=== PATIENT | female | born 1935 | race Caucasian/White ===

== ENCOUNTER 2016-12-16 20:15 | Emergency (ER) | payer OTHER ==
[~2016-12-16] VITALS: Ht 172.7 cm; Wt 69.9 kg
[2016-12-16 20:15] VITALS: BP 181/84; PULSE 72; RESP 18; TEMP 98.1; O2SAT 98
[~2016-12-16 20:15] MED LIST: ALEN70TA27 PO; LEVO112T5 PO; METO-306 PO
--- NOTE | 2016-12-16 20:15 | NUR ---
Patient to ER bed 5 to gown for evaluation. Side rails up. Report given to Margaret LO.
--- NOTE | 2016-12-16 20:24 | NUR ---
Patient brought to ER by family after slip & fall at home. Patient C/O severe 10/10 left lateral rib pain radiating to mid back, worse with inspiration and movement. AAOx4, unlabored breathing, clear lungs, no bruising, no signs of acute distress.
--- NOTE | 2016-12-16 20:26 | NUR ---
ER MD Harryaw at bedside for evaluation
[2016-12-16] MEDS ORDERED: KETOROLAC TROMETHAMINE 60 MG/2 ML VIAL IM ONE (20:45)
--- NOTE | 2016-12-16 21:49 | NUR ---
Patient calm on gurney, no signs of distress.
[2016-12-16 22:21] VITALS: BP 142/79; PULSE 73; RESP 17; TEMP 98.2; O2SAT 99
--- NOTE | 2016-12-16 22:21 | NUR ---
Patient given written and verbal discharge instructions and verbalizes understanding. ER MD Floyd discussed with patient the results and treatment provided. Patient in stable condition. ID arm band removed. Rx of norco given. Patient educated on pain management and to follow up with PMD. Pain Scale 0/10. Opportunity for questions provided and answered.
== END 2016-12-16 22:21 | disposition home or self-care (01) ==
LOC: SED 20:15
DX: S20.20XA Contusion of thorax, unspecified, initial encounter (principal); I10 Essential (primary) hypertension; W01.0XXA Fall on same level from slipping, tripping and stumbling without subsequent striking against object, initial encounter; Y93.89 Activity, other specified; Y92.89 Other specified places as the place of occurrence of the external cause; Y99.8 Other external cause status
CPT/HCPCS: 71250; 96372; 99284; J1885

== ENCOUNTER 2018-03-29 10:24 | Emergency (ER) | payer OTHER ==
[~2018-03-29] VITALS: Ht 172.7 cm; Wt 71.2 kg
[2018-03-29 10:24] VITALS: BP_SYST 142
[2018-03-29] MEDS ORDERED: NACL 0.9% 1,000 ML IV ONE (10:35)
[2018-03-29 11:03] LABS: BASOPHILS % (AUTO) 0.6 % (0.0-2.0); EOSINOPHILS % (AUTO) 0.2 % (0.0-4.0); HEMATOCRIT 37.5 % (36-48); HEMOGLOBIN 12.6 g/dL (12.0-16.0); LYMPHOCYTES # (AUTO) 2.5 K/uL (1.0-5.5); LYMPHOCYTES % (AUTO) 39.5 % (20.5-51.5); MEAN CORPUSCULAR HEMOGLOBIN 31 pg (27-31); MEAN CORPUSCULAR HGB CONC 34 % (32-36); MEAN CORPUSCULAR VOLUME 93 fL (79.0-98.0); MONOCYTES # (AUTO) 0.4 K/uL (0.0-1.0); MONOCYTES % (AUTO) 6.5 % (1.7-9.3); NEUTROPHILS # (AUTO) 3.4 K/uL (1.8-7.7); NEUTROPHILS % (AUTO) 53.2 % (40.0-70.0); PLATELET COUNT (AUTO) 287 K/uL (130-430); RED BLOOD CELL COUNT(AUTO) 4.03 MIL/uL (4.2-6.2); RED CELL DISTRIBUTION WIDTH 12.9 % (9.0-15.0); WHITE BLOOD COUNT (AUTO) 6.4 K/uL (4.8-10.8)
[2018-03-29 11:15] LABS: ANION GAP 13 (5-15); CALCIUM 8.6 mg/dL (8.4-11.0); CHLORIDE 105 mmol/L (98-107); CREATININE 0.96 mg/dL (0.55-1.30); GLUCOSE 135 mg/dL (70-99); POTASSIUM 3.5 mmol/L (3.5-5.1); SODIUM SERUM 142 mmol/L (136-145); UREA NITROGEN, BLOOD 14 mg/dL (8-21)
[2018-03-29 11:20] LABS: ALANINE AMINOTRANSFERASE 27 U/L (12-78); ALBUMIN 3.5 g/dL (3.4-4.8); ASPARTATE AMINOTRANSFERASE 21 U/L (10-37); TOTAL BILIRUBIN 0.2 mg/dL (0.0-1.0)
[2018-03-29] MEDS ORDERED: MAGNESIUM SULFATE 0 ML IV ONE (18:59)
[2018-03-29 20:49] VITALS: BP_SYST 138
== END 2018-03-29 12:50 | disposition home or self-care (01) ==
LOC: SED 10:24
DX: S82.002A Unspecified fracture of left patella, initial encounter for closed fracture (principal); S80.02XA Contusion of left knee, initial encounter; S00.531A Contusion of lip, initial encounter; S20.211A Contusion of right front wall of thorax, initial encounter; M54.5 Low back pain; G89.29 Other chronic pain; I10 Essential (primary) hypertension; Z79.899 Other long term (current) drug therapy; W01.0XXA Fall on same level from slipping, tripping and stumbling without subsequent striking against object, initial encounter; Y93.89 Activity, other specified; Y92.009 Unspecified place in unspecified non-institutional (private) residence as the place of occurrence of the external cause; Y99.8 Other external cause status
CPT/HCPCS: 36415; 70450; 70486; 71045; 72100; 73502; 73564; 80053; 85025; 99285; J7030; J3475

== ENCOUNTER 2019-12-07 17:52 | Emergency (ER) | payer OTHER ==
[~2019-12-07] VITALS: Ht 172.7 cm; Wt 68.0 kg
[~2019-12-07 17:52] MED LIST changes: -METO-306 PO; +METO-542 PO
[2019-12-07 18:13] VITALS: BP_SYST 132
[2019-12-07] MEDS ORDERED: TRANEXAMIC ACID 1,000 MG/10 ML VIAL IV ONE ×2 (18:45→23:00)
[2019-12-07] MEDS ORDERED: PHENYLEPHRINE HCL 1% NASAL 15 ML NASPR NS ONE (19:00)
[2019-12-07] MEDS ORDERED: LIDOCAINE 1% 10 MG/ML, 20 ML MDV INJ ONE (19:15)
[2019-12-07] MEDS ORDERED: fentaNYL CITRATE/PF 100 MCG/2 ML AMP IM ONE (19:30)
[2019-12-07] MEDS ORDERED: fentaNYL CITRATE/PF 100 MCG/2 ML AMP IVP ONE (20:45)
[2019-12-07] MEDS ORDERED: CLINDAMYCIN 600 MG in D5W 50 ML IV ONE (20:45)
[2019-12-07] MEDS ORDERED: CLINDAMYCIN 600 mg/50mL D5W 50 ML IV ONE (20:58)
[2019-12-07] MEDS ORDERED: MORPHINE 2 MG/ML INJ. SYRINGE IVP ONE (21:00)
[2019-12-07] MEDS ORDERED: LIDOCAINE/EPI 1% 1:100000 20 ML VIAL INJ ONE (23:00)
[2019-12-07] MEDS ORDERED: PHENYLEPHRINE HCL 0.25% NASAL 15 ML NASPR NS PRN (23:00)
[2019-12-07] MEDS ORDERED: OXYMETAZOLINE HCL 0.05% NASAL SPRAY NS PRN (23:00)
[2019-12-08] MEDS ORDERED: MORPHINE 2 MG/ML INJ. SYRINGE IVP ONE (00:15)
[2019-12-08 02:20] VITALS: BP_SYST 138
== END 2019-12-08 02:20 | disposition short-term general hospital (02) ==
LOC: SED 17:52
DX: S02.31XA Fracture of orbital floor, right side, initial encounter for closed fracture (principal); S02.32XA Fracture of orbital floor, left side, initial encounter for closed fracture; S02.609A Fracture of mandible, unspecified, initial encounter for closed fracture; S02.2XXA Fracture of nasal bones, initial encounter for closed fracture; I10 Essential (primary) hypertension; Z79.899 Other long term (current) drug therapy; W18.39XA Other fall on same level, initial encounter; Y93.89 Activity, other specified; Y92.89 Other specified places as the place of occurrence of the external cause; Y99.8 Other external cause status
CPT/HCPCS: 12011; 70450; 70486; 71045; 71110; 72125; 96365; 96372; 96375; 96376; 99285; J2001; J2270 ×2; J3010; J3490 ×2

== ENCOUNTER 2020-04-04 13:47 | Inpatient (IN) | payer OTHER ==
[~2020-04-04] VITALS: Ht 170.2 cm; Wt 59.4 kg
[2020-04-04 14:00] VITALS: BP_SYST 139
[2020-04-04] MEDS ORDERED: MORPHINE 2 MG/ML INJ. SYRINGE IVP ONE ×2 (15:15→16:30)
[2020-04-04] MEDS ORDERED: NS 500 ML IV ONE (15:30)
[2020-04-04 15:43] LABS: HEMOGLOBIN 11.7 g/dL (12.0-16.0); RED BLOOD CELL COUNT(AUTO) 3.91 MIL/uL (4.2-6.2)
[2020-04-04 15:48] LABS: BASOPHILS % (AUTO) 0.6 % (0.0-2.0); EOSINOPHILS # (AUTO) 0.1 K/uL (0.0-0.4); EOSINOPHILS % (AUTO) 0.9 % (0.0-4.0); HEMATOCRIT 35.6 % (36-48); LYMPHOCYTES # (AUTO) 2.6 K/uL (1.0-5.5); LYMPHOCYTES % (AUTO) 39.9 % (20.5-51.5); MEAN CORPUSCULAR HEMOGLOBIN 30 pg (27-31); MEAN CORPUSCULAR HGB CONC 33 % (32-36); MEAN CORPUSCULAR VOLUME 91 fL (79.0-98.0); MONOCYTES # (AUTO) 0.4 K/uL (0.0-1.0); MONOCYTES % (AUTO) 5.8 % (1.7-9.3); NEUTROPHILS # (AUTO) 3.5 K/uL (1.8-7.7); NEUTROPHILS % (AUTO) 52.8 % (40.0-70.0); PLATELET COUNT (AUTO) 256 K/uL (130-430); RED CELL DISTRIBUTION WIDTH 13.9 % (9.0-15.0); WHITE BLOOD COUNT (AUTO) 6.6 K/uL (4.8-10.8)
[2020-04-04 15:52] LABS: ANION GAP 7 (5-15); CALCIUM 8.6 mg/dL (8.4-11.0); CHLORIDE 106 mmol/L (98-107); CREATININE 1.01 mg/dL (0.55-1.30); GLUCOSE 102 mg/dL (70-99); POTASSIUM 4.1 mmol/L (3.5-5.1); SODIUM SERUM 139 mmol/L (136-145); UREA NITROGEN, BLOOD 16 mg/dL (8-21)
[2020-04-04 16:04] LABS: ALANINE AMINOTRANSFERASE 27 U/L (12-78); ALBUMIN 3.4 g/dL (3.4-4.8); ASPARTATE AMINOTRANSFERASE 20 U/L (10-37); TOTAL BILIRUBIN 0.2 mg/dL (0.0-1.0)
[2020-04-04] MEDS ORDERED: HYDR-4272 PO (16:56)
[2020-04-04] MEDS ORDERED: BACL10TA PO (16:56)
[2020-04-04] MEDS ORDERED: GABA-529 PO (16:56)
[2020-04-04] MEDS ORDERED: MORPHINE 2 MG/ML INJ. SYRINGE IVP PRN (17:45)
[2020-04-04] MEDS ORDERED: METOPROLOL SUCCINATE 50 MG TAB.SR.24H (TOPROL XL) PO ONE (17:45)
[2020-04-04] MEDS ORDERED: METOCLOPRAMIDE HCL 10 MG/2 ML VIAL IVP PRN (17:45)
[2020-04-04] MEDS ORDERED: ACETAMINOPHEN 325 MG TABLET PO PRN (17:45)
[2020-04-04] MEDS ORDERED: ONDANSETRON HCL 4 MG/2 ML VIAL IVP PRN (17:45)
[2020-04-04 17:52] VITALS: BP_SYST 128
[2020-04-04 18:49] VITALS: BP_SYST 132
[2020-04-04 20:00] VITALS: BP_SYST 161
[2020-04-04] MEDS ORDERED: IOHEXOL 350 mgI/mL, 150 ML INFUS..BTL IV ONE (20:19)
[2020-04-04 21:00] VITALS: BP_SYST 152
[2020-04-04] MEDS: NACL 0.9% 1,000 ML IV SCH (22:13)
[2020-04-04] MEDS: LEVOTHYROXINE SODIUM 0.112 MG TABLET PO SCH (22:14)
[2020-04-04] MEDS: MORPHINE 4 MG/ML INJ. SYRINGE IVP PRN (22:58)
[2020-04-05 00:34] VITALS: BP_SYST 152
[2020-04-05] MEDS: MORPHINE 4 MG/ML INJ. SYRINGE IVP PRN ×3 (05:50→21:13)
[2020-04-05 08:00] VITALS: BP_SYST 153
[2020-04-05] MEDS: LEVOTHYROXINE SODIUM 0.112 MG TABLET PO SCH ×2 (09:26→21:14)
[2020-04-05] MEDS: METOPROLOL SUCCINATE 50 MG TAB.SR.24H (TOPROL XL) PO SCH (09:26)
[2020-04-05] MEDS: NACL 0.9% 1,000 ML IV SCH (10:25)
[2020-04-05 12:37] VITALS: BP_SYST 146
[2020-04-05 16:00] VITALS: BP_SYST 147; BP_SYST 151
[2020-04-05 20:00] VITALS: BP_SYST 157
[2020-04-06 01:08] VITALS: BP_SYST 150
[2020-04-06] MEDS: NACL 0.9% 1,000 ML IV SCH ×2 (03:05→22:00)
[2020-04-06] MEDS: MORPHINE 4 MG/ML INJ. SYRINGE IVP PRN (05:03)
[2020-04-06 08:00] VITALS: BP_SYST 149
[2020-04-06] MEDS: LEVOTHYROXINE SODIUM 0.112 MG TABLET PO SCH ×2 (09:37→22:00)
[2020-04-06] MEDS: METOPROLOL SUCCINATE 50 MG TAB.SR.24H (TOPROL XL) PO SCH (09:37)
[2020-04-06 12:29] VITALS: BP_SYST 139
[2020-04-06 15:11] LABS: BILIRUBIN,URINE NEGATIVE (NEGATIVE); BLOOD, URINE 1+ (NEGATIVE); CLARITY/URINE CLEAR (CLEAR); COLOR,URINE YELLOW (YELLOW); GLUCOSE,URINE NEGATIVE (NEGATIVE); KETONES,URINE 2+ (NEGATIVE); LEUKOCYTE ESTERASE ,URINE NEGATIVE (NEGATIVE); NITRITE, URINE NEGATIVE (NEGATIVE); PROTEIN URINE TRACE (NEGATIVE); UROBILINOGEN,URINE 0.2 (0.2-1.0)
[2020-04-06] MEDS ORDERED: ROCURONIUM BROMIDE 10 MG/ML (ZEMURON) ONE ×2 (15:49→17:17)
[2020-04-06] MEDS ORDERED: POLYMYXIN 500,000/BACIT.10,000 UNITS in NS IRR 1 L IR ONE (15:52)
[2020-04-06 16:12] LABS: BACTERIA,URINE FEW /HPF (None Seen); COARSE GRANULAR CASTS,URINE 0-10 /LPF (None Seen); MUCUS,URINE 2+ /LPF (None Seen); RBC,URINE 0-3 /HPF (0-3)
[2020-04-06] MEDS ORDERED: LR 1,000 ML IV SCH (16:16)
[2020-04-06] MEDS ORDERED: HYDROmorphone 2 MG/ML VIAL IVP PRN (16:30)
[2020-04-06] MEDS ORDERED: hydrALAZINE HCL 20 MG/ML VIAL IVP PRN (16:30)
[2020-04-06] MEDS ORDERED: NALOXONE HCL 0.4 MG/ML AMP (NARCAN) IVP PRN (16:30)
[2020-04-06] MEDS ORDERED: ONDANSETRON HCL 4 MG/2 ML VIAL IVP PRN (16:30)
[2020-04-06] MEDS ORDERED: ePHEDrine sulfate 50 MG/ML VIAL IVP PRN (16:30)
[2020-04-06] MEDS ORDERED: PROPOFOL 200MG/ 20ML VIAL (DIPRIVAN) IV ONE (17:17)
[2020-04-06] MEDS ORDERED: fentaNYL CITRATE/PF 100 MCG/2 ML AMP ONE (17:17)
[2020-04-06] MEDS ORDERED: MIDAZOLAM HCL 5 MG/ML VIAL (VERSED) IV ONE (17:17)
[2020-04-06] MEDS ORDERED: ePHEDrine sulfate 50 MG/ML VIAL ONE (17:17)
[2020-04-06] MEDS ORDERED: CEFAZOLIN 2 GM IVPB PREMIX 50 ML IV ONE (17:17)
[2020-04-06] MEDS ORDERED: BUPIVACAINE /PF 0.5% 30 ML VIAL ONE (17:17)
[2020-04-06] MEDS ORDERED: LR 1,000 ML IV.SOLN IV ONE (17:17)
[2020-04-06] MEDS ORDERED: SEVOFLURANE 15 MIN GAS INH ONE (17:17)
[2020-04-06] MEDS ORDERED: ONDANSETRON HCL 4 MG/2 ML VIAL ONE (17:17)
[2020-04-06] MEDS: HYDROmorphone 1 MG INJ. 1 MG/ML AMPUL IVP PRN ×2 (17:40→17:50)
[2020-04-06] MEDS ORDERED: HYDROmorphone 1 MG INJ. 1 MG/ML AMPUL ONE (17:57)
[2020-04-06 18:13] VITALS: BP_SYST 168
[2020-04-06] MEDS ORDERED: LR 1,000 ML IV ONE (19:30)
[2020-04-06] MEDS ORDERED: HYDROcodone/ACETAMIN 5-325 MG TAB (NORCO/ VICODIN) PO PRN (19:30)
[2020-04-06 20:00] VITALS: BP_SYST 131
[2020-04-06] MEDS: DOCUSATE SODIUM 100 MG CAPSULE PO SCH (22:00)
[2020-04-06] MEDS: CEFAZOLIN 1 GM IVPB PREMIX 50 ML IV SCH (22:01)
[2020-04-06] MEDS: HYDROcodone/ACETAMIN 5-325 MG TAB (NORCO/ VICODIN) PO PRN (22:06)
[2020-04-07 01:39] VITALS: BP_SYST 100
[2020-04-07] MEDS: CEFAZOLIN 1 GM IVPB PREMIX 50 ML IV SCH (06:39)
[2020-04-07 07:51] LABS: BASOPHILS # (AUTO) 0.1 K/uL (0.0-0.2); BASOPHILS % (AUTO) 0.4 % (0.0-2.0); EOSINOPHILS % (AUTO) 0.1 % (0.0-4.0); HEMATOCRIT 25.9 % (36-48); HEMOGLOBIN 8.5 g/dL (12.0-16.0); LYMPHOCYTES # (AUTO) 1.3 K/uL (1.0-5.5); LYMPHOCYTES % (AUTO) 8.7 % (20.5-51.5); MEAN CORPUSCULAR HEMOGLOBIN 30 pg (27-31); MEAN CORPUSCULAR HGB CONC 33 % (32-36); MEAN CORPUSCULAR VOLUME 91 fL (79.0-98.0); MONOCYTES # (AUTO) 0.8 K/uL (0.0-1.0); MONOCYTES % (AUTO) 5.5 % (1.7-9.3); NEUTROPHILS # (AUTO) 12.5 K/uL (1.8-7.7); NEUTROPHILS % (AUTO) 85.3 % (40.0-70.0); PLATELET COUNT (AUTO) 167 K/uL (130-430); RED BLOOD CELL COUNT(AUTO) 2.84 MIL/uL (4.2-6.2); RED CELL DISTRIBUTION WIDTH 14.6 % (9.0-15.0); WHITE BLOOD COUNT (AUTO) 14.7 K/uL (4.8-10.8)
[2020-04-07 08:00] VITALS: BP_SYST 132
[2020-04-07] MEDS: LEVOTHYROXINE SODIUM 0.112 MG TABLET PO SCH ×2 (09:00→21:02)
[2020-04-07] MEDS: DOCUSATE SODIUM 100 MG CAPSULE PO SCH ×2 (09:00→21:02)
[2020-04-07] MEDS: METOPROLOL SUCCINATE 50 MG TAB.SR.24H (TOPROL XL) PO SCH (09:00)
[2020-04-07 12:16] VITALS: BP_SYST 136
[2020-04-07] MEDS: NACL 0.9% 1,000 ML IV SCH ×2 (12:25→22:28)
[2020-04-07] MEDS: ENOXAPARIN SODIUM 40 MG/0.4 ML SYRINGE SUBCUT SCH (14:11)
[2020-04-07 16:10] VITALS: BP_SYST 109
[2020-04-07] MEDS: HYDROcodone/ACETAMIN 5-325 MG TAB (NORCO/ VICODIN) PO PRN (17:14)
[2020-04-07 20:00] VITALS: BP_SYST 102
[2020-04-08 01:48] VITALS: BP_SYST 105
[2020-04-08 06:22] LABS: ALANINE AMINOTRANSFERASE 21 U/L (12-78); ALBUMIN 2.1 g/dL (3.4-4.8); ANION GAP 7 (5-15); ASPARTATE AMINOTRANSFERASE 26 U/L (10-37); CALCIUM 7.3 mg/dL (8.4-11.0); CHLORIDE 106 mmol/L (98-107); CREATININE 0.77 mg/dL (0.55-1.30); GLUCOSE 113 mg/dL (70-99); POTASSIUM 3.6 mmol/L (3.5-5.1); SODIUM SERUM 139 mmol/L (136-145); TOTAL BILIRUBIN 0.4 mg/dL (0.0-1.0); UREA NITROGEN, BLOOD 13 mg/dL (8-21)
[2020-04-08 07:45] VITALS: BP_SYST 113
[2020-04-08] MEDS: LEVOTHYROXINE SODIUM 0.112 MG TABLET PO SCH ×2 (08:21→20:49)
[2020-04-08] MEDS: METOPROLOL SUCCINATE 50 MG TAB.SR.24H (TOPROL XL) PO SCH (08:23)
[2020-04-08] MEDS: DOCUSATE SODIUM 100 MG CAPSULE PO SCH ×3 (08:23→20:49)
[2020-04-08 10:04] LABS: HEMATOCRIT 22.3 % (36-48); HEMOGLOBIN 7.5 g/dL (12.0-16.0); MEAN CORPUSCULAR HEMOGLOBIN 30 pg (27-31); MEAN CORPUSCULAR HGB CONC 34 % (32-36); MEAN CORPUSCULAR VOLUME 91 fL (79.0-98.0); PLATELET COUNT (AUTO) 166 K/uL (130-430); RED BLOOD CELL COUNT(AUTO) 2.46 MIL/uL (4.2-6.2); RED CELL DISTRIBUTION WIDTH 14.5 % (9.0-15.0); WHITE BLOOD COUNT (AUTO) 10.3 K/uL (4.8-10.8)
[2020-04-08 10:05] LABS: BASOPHILS % (AUTO) 0.3 % (0.0-2.0); EOSINOPHILS # (AUTO) 0.1 K/uL (0.0-0.4); EOSINOPHILS % (AUTO) 0.9 % (0.0-4.0); LYMPHOCYTES # (AUTO) 1.4 K/uL (1.0-5.5); LYMPHOCYTES % (AUTO) 13.2 % (20.5-51.5); MONOCYTES # (AUTO) 0.8 K/uL (0.0-1.0); MONOCYTES % (AUTO) 7.4 % (1.7-9.3); NEUTROPHILS # (AUTO) 8.1 K/uL (1.8-7.7); NEUTROPHILS % (AUTO) 78.2 % (40.0-70.0)
[2020-04-08 12:13] VITALS: BP_SYST 143
[2020-04-08] MEDS: ENOXAPARIN SODIUM 40 MG/0.4 ML SYRINGE SUBCUT SCH (13:29)
[2020-04-08 16:25] VITALS: BP_SYST 136
[2020-04-08 20:00] VITALS: BP_SYST 131
[2020-04-08 21:18] VITALS: BP_SYST 131
== END 2020-04-08 22:30 | DRG 481 ==
LOC: SED 13:47 → SMU 16:52
PROVIDERS: ADMIT Internal Medicine Hospice and Palliative Medicine; ATTEND Internal Medicine Hospice and Palliative Medicine
PROC: 0QS706Z Reposition Left Upper Femur with Intramedullary Internal Fixation Device, Open Approach (ICD-10-PCS; principal; 2020-04-05)
DX: S72.142A Displaced intertrochanteric fracture of left femur, initial encounter for closed fracture (principal); E44.1 Mild protein-calorie malnutrition; G89.29 Other chronic pain; M54.9 Dorsalgia, unspecified; I10 Essential (primary) hypertension; W18.39XA Other fall on same level, initial encounter; Y93.89 Activity, other specified; Y92.89 Other specified places as the place of occurrence of the external cause; Y99.8 Other external cause status; Z68.20 Body mass index [BMI] 20.0-20.9, adult; Z03.818 Encounter for observation for suspected exposure to other biological agents ruled out
CPT/HCPCS: 36415; 71045; 71260-TC; 72192-TC; 76000; 80053; 81000-TC; 84484; 85025; 85379; 85610-TC; 85730-TC; 87081; 93005; 93970; 96361; 96374; 96376; 97110-GP; 97116-GP; 97163; 99285; J0690; J1170; J1650; J2250; J2270; J2405; J2704; J3010; J3490; J7030; J7120; Q9967; U0003-CS

== ENCOUNTER 2022-02-08 03:27 | Inpatient (IN) | payer OTHER ==
[~2022-02-08] VITALS: Ht 165.1 cm; Wt 59.0 kg
[~2022-02-08 03:27] MED LIST changes: -ALEN70TA27 PO; +BACL10TA PO; +GABA-529 PO; +HYDR-4272 PO
[2022-02-08 03:35] VITALS: BP_SYST 159
--- NOTE | 2022-02-08 03:39 | NUR ---
Patient to ER bed 6 to gown for evaluation. Side rails up. Report given to .
--- NOTE | 2022-02-08 03:43 | NUR ---
PT BIBA FROM HOME FOR SUDDEN ONSET OF SHARP NON-RADIATING LEFT HIP PAIN 06/06. REPORTS SHE HAD A TRIP AND FALL INCIDENT TWO DAYS AGO BUT THINKS ITS UNRELATED. NO OBVIOUS SHORTENING OR FRACTURE NOTED. PT ALSO REPORTS SHE HAD SURGERY TO LEFT HIP 2 YEARS AGO AND HAS ARTHRITIS. VSS, SLIGHTLY HYPERTESIVE AT 159/93. DR ALICEA INFORMED. SAFTEY PRECAUTIONS IN PLACE. REPORT GIVEN TO VIOLA LO.
--- NOTE | 2022-02-08 04:21 | NUR ---
RAD at bedside for imaging Addendum: 02/08/22 at 0424 by [email or web address] WALLY Lou
[2022-02-08] MEDS ORDERED: LORazepam 2 MG/ML VIAL IVP ONE (04:30)
[2022-02-08] MEDS ORDERED: MORPHINE 4 MG INJ. 4 MG/ML VIAL IVP ONE (04:30)
--- NOTE | 2022-02-08 04:40 | NUR ---
# 20 gauge angiocath placed to R Forearm. Use of asceptic technique. Opsite placed over site. Blood return noted. Blood for lab drawn from site. Flushed with 10 cc of normal saline. No evidence of infiltration noted. Patient tolerated well.
--- NOTE | 2022-02-08 05:30 | NUR ---
Pt resting in bed, no acute signs of distress. Breathing adequately on RA. at bedside.
--- NOTE | 2022-02-08 07:11 | NUR ---
Report endorsed to WALLY Mcneal.
--- NOTE | 2022-02-08 07:25 | NUR ---
assumed care of patient. patient here after having a fall x2 days ago. c/o of hip pain. noted with bruising to right leg. awaiting results of CT. assisted patient to bedpan. tolerated well.
--- NOTE | 2022-02-08 09:14 | NUR ---
Admit bed requested Patient will be admitted to care of Dr. DUNCAN. Admitted to MED SURG unit. Diagnosis HIP FRACTURE Inpatient (Yes or No) YES Observation (Yes or No) NO Orientation concerns or request close to nursing station (Yes or No) NO Covid Status PENDING On vent or bipap NO Isolation requirements NO Needs a sitter NO From Home (Yes or if No enter name of facility) YES Requires Dialysis (Yes or No) NO Med Rec Completed (Yes of No) YES
[2022-02-08 10:56] VITALS: BP_SYST 156
--- NOTE | 2022-02-08 11:00 | NUR ---
Patient will be admitted to care of PERLA. Admitted to MED SURG unit. Will go to room 132 BED A. Belongings list completed. Complete and up to date summary report printed. SBAR report to be given at bedside with opportunity for questions.
--- NOTE | 2022-02-08 11:15 | NUR ---
CONSULTATION PAGED/CALLED Reason for Consultation: [] HIP PAIN Person Who was Notified: [] DR CUNNINGHAM Consulting Physician: [] DR JANIE CUNNINGHAM Day Treatment Clinician/Art Therapist Specialty: [] ORTHO Ordering Physician: [] DR DUNCAN
[2022-02-08 11:31] VITALS: BP_SYST 156
--- NOTE | 2022-02-08 11:36 | NUR ---
Initial notes Received patient form ER awake and oriented. No distress, per patient she fell a month ago and the pain has been worsening since yesterday afternoon. Patient is unable to walk. Patient is oriented to room. Safety precautions in place. Call light within reach.
[2022-02-08 11:40] LABS: BASOPHILS % (AUTO) 0.7 % (0.0-2.0); EOSINOPHILS # (AUTO) 0.2 K/uL (0.0-0.4); EOSINOPHILS % (AUTO) 2.8 % (0.0-4.0); HEMATOCRIT 35.8 % (36-48); HEMOGLOBIN 11.7 g/dL (12.0-16.0); LYMPHOCYTES # (AUTO) 2.1 K/uL (1.0-5.5); LYMPHOCYTES % (AUTO) 31.8 % (20.5-51.5); MEAN CORPUSCULAR HEMOGLOBIN 32 pg (27-31); MEAN CORPUSCULAR HGB CONC 33 % (32-36); MEAN CORPUSCULAR VOLUME 96 fL (79.0-98.0); MONOCYTES # (AUTO) 0.5 K/uL (0.0-1.0); MONOCYTES % (AUTO) 7.5 % (1.7-9.3); NEUTROPHILS # (AUTO) 3.8 K/uL (1.8-7.7); NEUTROPHILS % (AUTO) 57.2 % (40.0-70.0); PLATELET COUNT (AUTO) 230 K/uL (130-430); RED BLOOD CELL COUNT(AUTO) 3.71 MIL/uL (4.2-6.2); RED CELL DISTRIBUTION WIDTH 12.7 % (9.0-15.0); WHITE BLOOD COUNT (AUTO) 6.6 K/uL (4.8-10.8)
[2022-02-08 11:54] LABS: ANION GAP 4 (5-15); CALCIUM 8.7 mg/dL (8.4-11.0); CHLORIDE 109 mmol/L (98-107); CREATININE 0.73 mg/dL (0.55-1.30); GLUCOSE 93 mg/dL (70-99); POTASSIUM 4.1 mmol/L (3.5-5.1); SODIUM SERUM 142 mmol/L (136-145); UREA NITROGEN, BLOOD 9 mg/dL (8-21)
--- NOTE | 2022-02-08 12:00 | NUR ---
Notes Set up lunch tray, patient able to feed self,
[2022-02-08 12:06] LABS: ALANINE AMINOTRANSFERASE 22 U/L (12-78); ALBUMIN 3.2 g/dL (3.4-4.8); ASPARTATE AMINOTRANSFERASE 17 U/L (10-37); TOTAL BILIRUBIN 0.1 mg/dL (0.0-1.0)
--- NOTE | 2022-02-08 13:32 | NUR ---
Notes Patient went MRI at this time, No distress noted.
--- NOTE | 2022-02-08 13:57 | NUR ---
P.T. NOTES HOLD P.T. EVAL DUE TO HOSPITAL PROCEDURE; FF UP TOMORROW WHEN ABLE.
[2022-02-08] MEDS ORDERED: METOPROLOL SUCCINATE 50 MG TAB.SR.24H (TOPROL XL) PO ONE (14:15)
[2022-02-08 15:00] VITALS: BP_SYST 128
[2022-02-08 16:00] VITALS: BP_SYST 141
--- NOTE | 2022-02-08 16:00 | NUR ---
Notes Patient is in bed, resting, with eyes closed. No pain or distress noted. Breathing is even and unlabored. Safety precautions in place and call light within reach.
--- NOTE | 2022-02-08 18:30 | NUR ---
Closing Note Patient is in bed, eating her dinner. Head of the bed elevated. No distress noted. Family is by bedside. Safety precautions in place, call light within reach.
[2022-02-08 20:00] VITALS: BP_SYST 132
[2022-02-09 00:25] VITALS: BP_SYST 127
[2022-02-09] MEDS ORDERED: NALOXONE HCL 0.4 MG/ML AMP (NARCAN) IVP PRN (01:00)
[2022-02-09] MEDS: HYDROcodone/ACETAMIN 5-325 MG TAB (NORCO/ VICODIN) PO PRN ×2 (01:02→08:15)
[2022-02-09 08:15] VITALS: BP_SYST 148
[2022-02-09] MEDS: METOPROLOL SUCCINATE 50 MG TAB.SR.24H (TOPROL XL) PO SCH (08:15)
--- NOTE | 2022-02-09 08:15 | NUR ---
Scheduled medication given per order. Patient medicated for 5/10 pain in left hip. Patient stable at this time.
--- NOTE | 2022-02-09 08:30 | NUR ---
Patient stable with CABRERA Rico at bedside. Addendum: 02/09/22 at 0836 by Sri Daniel RN Patient ambulating in hallway with walker; CABRERA Rico standing by. Jean and son at bedside.
[2022-02-09 12:33] VITALS: BP_SYST 118
--- NOTE | 2022-02-09 13:20 | NUR ---
Patient ambulated with walker to bathroom and back to bed with standby assist.
--- NOTE | 2022-02-09 15:00 | NUR ---
Patient stable with and son at bedside. Patient stable.
--- NOTE | 2022-02-09 15:32 | NUR ---
Dietitian Recommendations MS diet. Consider swallow evaluation. LP, RD Please refer to Nutrition Assessment for details. Signed: 02/09/22 at 1533 by Cande DOSHI <Co-Signature Required> Co-Signed: 02/09/22 at [address] Addendum: 02/09/22 at 1533 by Cande DOSHI Amended: Links added.
[2022-02-09 16:57] VITALS: BP_SYST 116
--- NOTE | 2022-02-09 17:49 | NUR ---
Patient resting comfortably in bed with no distress noted at this time.
--- NOTE | 2022-02-09 18:17 | NUR ---
Patient stable with and son at bedside. Patient stable throughout shift.
--- NOTE | 2022-02-09 19:30 | NUR ---
PM ASSESSMENT -pt is a/ox4, resting in bed. Pt denies any chest pain,sob,or any acute distress. IV site patent,flushed well,no s/s any infiltration noted. Discussed poc,all safety measures, pt verbalized understanding. All safety measures in place. Bed alarm in place. Side rails x3,call light w/in reach. Continue to monitor pt.
[2022-02-09 20:00] VITALS: BP_SYST 119
--- NOTE | 2022-02-09 20:12 | NUR ---
ROUNDS; -pt is resting in bed comfortably. No s/s any acute distress noted. All safety measures in place. Bed alarm in place. Side rails x3,call light w/in reach. Continue to monitor pt.
--- NOTE | 2022-02-09 22:15 | NUR ---
ROUNDS; pt is resting in bed comfortably. No s/s any acute distress noted. All safety measures in place. Bed alarm in place. Side rails x3,call light w/in reach. Continue to monitor pt.
[2022-02-10 00:45] VITALS: BP_SYST 129
[2022-02-10] MEDS: HYDROcodone/ACETAMIN 5-325 MG TAB (NORCO/ VICODIN) PO PRN (01:06)
--- NOTE | 2022-02-10 01:06 | NUR ---
PAIN MGMT -pt is c/o generalized aching pain 10/10, gave [place] 1 tab po. Will reassess pain level w/in an hour.
--- NOTE | 2022-02-10 02:06 | NUR ---
PAIN REASSESSMENT; -Pt is asleep. NO s/s any pain,sob,or any acute distress noted. All safety measures in place. Call light w/n reach. Continue to monitor pt.
--- NOTE | 2022-02-10 04:05 | NUR ---
ROUNDS; pt is asleep. No s/s any acute distress noted. All safety measures in place. Bed alarm in place. Side rails x3,call light w/in reach. Continue to monitor pt.
--- NOTE | 2022-02-10 06:45 | NUR ---
CLOSING NOTES; -pt is resting in bed. No s/s any chest pain,sob,or any acute distress noted. IV site patent drsg cdi. Fall precaution in place entire shift. All safety measures in place. Bed alarm in place. Side rails x3,call light w/in reach. Will endorse to next nurse to cont care.
[2022-02-10 08:00] VITALS: BP_SYST 124
--- NOTE | 2022-02-10 08:00 | NUR ---
Opening Notes Patient is laying in bed awake. A/O x4. No apparent distress noted. Patient denies pain. Vitals as charted. Call light within reach. Safety and fall precautions in place.
[2022-02-10] MEDS: METOPROLOL SUCCINATE 50 MG TAB.SR.24H (TOPROL XL) PO SCH (09:45)
--- NOTE | 2022-02-10 10:00 | NUR ---
Note Assisted patient with restroom needs by bedside almaraz and hygiene. Call light within reach. All needs met. Safety and fall precautions in place.
[2022-02-10 12:30] VITALS: BP_SYST 122
[2022-02-10 14:08] VITALS: BP_SYST 122
--- NOTE | 2022-02-10 14:40 | NUR ---
D/C Patient Patient given medication reconciliation form and D/C instructions. Exit Care provided. Patient verbalized understanding. MD discussed with patient the results and treatment provided. wheeled out discharge to home. Patient in stable condition, ID band removed. IV catheter removed, intact and dressing applied, no active bleeding. Patient educated on pain management. All belongings sent with patient. Patient taken home by [facility].
== END 2022-02-10 14:50 | disposition home or self-care (01) | DRG 552 ==
LOC: SED 03:27 → SMU 09:16
PROVIDERS: ADMIT Internal Medicine Hospice and Palliative Medicine; ATTEND Internal Medicine Hospice and Palliative Medicine
DX: M54.16 Radiculopathy, lumbar region (principal); M25.552 Pain in left hip; Z20.822 Contact with and (suspected) exposure to COVID-19; I10 Essential (primary) hypertension; G89.29 Other chronic pain; M54.9 Dorsalgia, unspecified; G31.84 Mild cognitive impairment of uncertain or unknown etiology; Z79.899 Other long term (current) drug therapy
CPT/HCPCS: 36415; 72110; 72148; 72170-TC; 72192-TC; 73502; 76376; 80053; 85025; 93005; 96374; 96375; 97110-GP; 97116-GP; 97530-GP; 99285; J2060; J2270